=== PATIENT | male | born 1945 | race Asian ===

== ENCOUNTER 2025-04-09 08:06 | Day surgery (SDC) | payer OTHER, SELFPAY ==
[2025-04-09] VITALS (11 sets, daily range): BP systolic 136–186; BP diastolic 58–92; BMI 18.6
--- NOTE | 2025-04-09 08:35 | W.SUR.PREOP ---
Pre-Operative Surgical Note
-
I have examined this patient prior to the performance of the scheduled procedure.
The patient's condition is unchanged from the time of the current History and
Physical and the patient is able to undergo the scheduled procedure.
[2025-04-09] MEDS: NSS 500 IV (08:53)
[2025-04-09] MEDS: BACTROBAN NASAL 1 GRAM NASAL (08:53)
[2025-04-09] MEDS: PERIDEX 0.12% ORAL RINSE 15 ML PO (08:53)
[2025-04-09] MEDS: VANCOCIN 200 IV (08:54)
[2025-04-09 08:56] LABS: Hematocrit 49.0 % (39.0-52.0); Hemoglobin 15.3 g/dL (13.0-18.0); Mean Corp Hgb Conc. 31.2 g/dL (33.0-37.0); Mean Corpuscular Volume 97.4 fL (80.0-94.0); Red Cell Dist. Width 16.8 % (11.5-14.5)
[2025-04-09 09:00] LABS: INR 1.01; PT 13.8 Sec (11.4-14.6)
[2025-04-09 09:01] LABS: APTT 35.2 Sec (23.4-35.0)
[2025-04-09 09:38] LABS: Blood Urea Nitrogen 18 mg/dl (9-20); Calcium 8.9 mg/dl (8.4-10.2); Carbon Dioxide 24 mmol/L (22-30); Chloride 105 mmol/L (98-107); Estimated Creatinine Clearance 10 ml/min; Glucose 95 mg/dl (70-99); Potassium 4.7 mmol/L (3.5-5.1); Sodium 137 mmol/L (135-145); eGFR 14.08
[2025-04-09 09:40] LABS: Platelet Count 47 10^3/uL (130-400)
[2025-04-09] MEDS: SUBLIMAZE 50 MCG IV (11:33)
--- NOTE | 2025-04-09 11:34 | W.SUR.POST ---
Surgical Immediate Post Op
Note
Pre Op Diagnosis: ESRD
Post Op Diagnosis: ESRD
Procedure Performed: Left upper extremity brachiobasilic AV fistula creation
Primary Surgeon: Austyn Dale M.D.
fleet assistant: Nayely Gomez SET ILLUSTRATOR-C
Anesthesia: GETA
Estimated Blood Loss: 5 mL
Fluids: See anesthesia flowsheet
Drains/Shunts: None
Specimens/Cultures: N/A
Doppler/Duplex/Angio (Y/N): Y, Doppler
Complications: None
Operative Findings: Successful creation of AV brachiobasilic fistula creation with palpable thrill and palpable left radial pulse
--- NOTE | 2025-04-09 11:43 | OR.RPT ---
Operative Report
Operative Report
PROCEDURE DATE: 04/09/2025
Preoperative diagnosis: End-stage renal disease on hemodialysis
Postoperative diagnosis: Same
Procedure: Left upper extremity brachiobasilic arteriovenous fistula creation with single stage basilic vein transposition.
Surgeon: Chito
Lab Rep: PILAR Gomez, required for all aspects of procedure including assistance with traction/countertraction, following of suture line, assistance with closure.
Complications: None
Anesthesia: General
Indications for procedure:
End-stage renal disease on hemodialysis. Risk/benefits/alternatives of AV fistula creation were discussed. Patient understood all wished to proceed.
Description of procedure:
Patient was identified brought to the operating room placed on the table in supine position. After the adequate administration of anesthesia and perioperative antibiotics he was prepped and draped in the standard surgical fashion. A standard
preoperative timeout was undertaken and everybody was in agreement the plan. A longitudinal incision was made in the medial distal left upper arm that was carried through the skin subcutaneous tissue with electrocautery. The basilic vein was
identified and carefully dissected away from surrounding structures and great care to avoid any injury to structures. It appeared to be a very suitable vein. I therefore then continued my incisions extending proximally up towards the axilla and
distally just to the level of the antecubital fossa. The basilic vein was carefully dissected away from surrounding structures take great care to avoid any injury to structures, namely the median antebrachial cutaneous nerve and its branch which
were carefully preserved from harm's way. Any branches of the basilic vein were ligated between silk ties and clips and then divided. As such I was able to mobilize the entirety of the basilic vein out of its bed. Once I fully mobilized
sufficient length of vein I deepened my dissection in the distal aspect of my incision through the fascial layer, thereby identifying the brachial artery and carefully dissected away from surrounding structures and great care to avoid any injury to
structures. I passed Vesseloops around it proximally and distally.
Next, I ligated the mobilized basilic vein distally with a silk tie and a clip and then transected it. I then untethered it from the nerve. I distended under heparinized saline. It distended very well. I marked the anterior surface under
distention to avoid any kinking or twisting when I tunneled it. I also passed a 3 mm and 3.5 mm tunneler just to confirm which both passed without any difficulty whatsoever.
Next I made a small counterincision overlying the biceps and used an aortic clamp to tunnel the mobilized basilic vein to the arterial exposure site (tunneled in a rainbow fashion overlying the biceps). The tunneling was performed with the vein
under distention to avoid any kinking or twisting.
Next I gave the patient 3000 units of intravenous heparin. I then tightened my Vesseloops (double looped) proximally and distally on the brachial artery. Next I made an arteriotomy with 11 blade and extended using a Galo scissor. I then
spatulated the vein and sewed an end-to-side anastomosis using a running 6-0 Prolene suture. I then completed and tied down my suture line. Next I released my Vesseloops on the artery and the bulldog clamp tied placed on the vein. There was an
excellent thrill in the fistula. There was a small suture line bleeder that was repaired with a single 6-0 Prolene [id number] type suture. Hemostasis was now achieved along the suture line. I confirmed good distal flow with an easily
dopplerable radial signal at the wrist (once the patient was awake and blood pressure normalized, there was an easily palpable pulse as well). At this point I was very satisfied. I therefore irrigated all my incision sites. Hemostasis was fully
achieved and confirmed. Then we closed the vein mobilization bed using 3-0 Vicryl running suture. Next 4-0 Monocryl subcuticular stitch was run. The small counterincision was closed with 4-0 Monocryl subcuticular stitch as well. Dermabond was
applied to the incision sites. Patient tolerated the procedure well. All sponge, needle, instrument counts were correct at the end of the case. The patient was transferred to the recovery room in stable condition.
[2025-04-09] MEDS: ROXICODONE 5 MG PO (12:06)
== END 2025-04-09 14:15 | disposition home or self-care (01) ==
LOC: CATH 08:06
PROVIDERS: ATTENDING PHYSICIAN Surgery Vascular Surgery; FAMILY PHYSICIAN Family Medicine
DX: N18.6 End stage renal disease (principal); Z99.2 Dependence on renal dialysis
CPT/HCPCS: 36819; 80048; 85027; 85610; 85730; 86850; 86900; 86901; 93005